=== PATIENT | female | born 1995 | race Caucasian/White ===

== ENCOUNTER 2023-03-24 00:39 | Emergency (ER) | payer OTHER ==
[2023-03-24 00:51] VITALS: BP 109/74; PULSE 77; RESP 18; TEMP 97.8; BMI 25.6
[2023-03-24] MEDS ORDERED: ONDANSETRON *ODT* 4 MG TABLET SL ONE ×2 (01:18→01:34)
[2023-03-24] MEDS ORDERED: ONDANSETRON *ODT* 4 MG TABLET ONE (01:25)
== END 2023-03-24 01:35 | disposition home or self-care (01) ==
LOC: JER 00:39
DX: R11.2 Nausea with vomiting, unspecified (principal); R19.7 Diarrhea, unspecified; R68.83 Chills (without fever); Z20.822 Contact with and (suspected) exposure to COVID-19
CPT/HCPCS: 0241U-QW; 99283-25; Q0162

== ENCOUNTER 2024-09-16 00:29 | Emergency (ER) | payer SELFPAY ==
[2024-09-16 00:37] VITALS: BP 119/75; PULSE 69; RESP 18; TEMP 98.6; BMI 28.3
[2024-09-16] MEDS ORDERED: ACETAMINOPHEN 325 MG TABLET (FP) ONE (01:44)
[2024-09-16] MEDS ORDERED: FAMOTIDINE 20 MG TABLET ONE (01:44)
[2024-09-16] MEDS ORDERED: MAG HYDROX/AL HYDROX/SIMETH 30 ML UNIT-DOSE CUP ONE (01:45)
[2024-09-16] MEDS: ACETAMINOPHEN 325 MG TABLET (FP) PO ONE (02:05)
[2024-09-16] MEDS: MAG HYDROX/AL HYDROX/SIMETH 30 ML UNIT-DOSE CUP PO ONE (02:05)
[2024-09-16] MEDS: FAMOTIDINE 20 MG TABLET PO ONE (02:05)
[2024-09-16 02:08] LABS: BASO % 0.6 % (0-2.0); EOS % 2.2 % (0-4.5); HEMATOCRIT 34.3 % (32.4-45.2); HEMOGLOBIN 11.4 GM/dL (10.7-15.3); MCH 28.7 pg (25.7-33.7); MCHC 33.1 g/dl (32.0-36.0); MEAN CELL VOLUME 86.7 fl (80-96); NEUT % 54.2 % (42.8-82.8); PLATELET COUNT 272 10^3/uL (134-434); RBC 3.95 M/mm3 (3.60-5.2); RDW 13.9 % (11.6-15.6); WHITE BLOOD COUNT 7.2 K/mm3 (4.0-10.0)
[2024-09-16 02:26] LABS: POTASSIUM 4.2 mmol/L (3.5-5.1)
[2024-09-16 02:28] LABS: ALBUMIN 3.8 g/dl (3.4-5.0); BLOOD UREA NITROGEN 13.9 mg/dL (7-18); CALCIUM 8.8 mg/dL (8.5-10.1)
[2024-09-16 02:31] LABS: CREATININE 0.9 mg/dL (0.55-1.3)
[2024-09-16 02:33] LABS: BILIRUBIN,TOTAL 0.2 mg/dL (0.2-1); TOT PROT 7.3 g/dl (6.4-8.2)
[2024-09-16 03:42] LABS: HIV INTERPRETATION NEGATIVE (NEGATIVE)
[2024-09-16] MEDS ORDERED: IBUPROFEN 600 MG TABLET (FP) PO ONE (03:47)
[2024-09-16] MEDS: IBUPROFEN 600 MG TABLET (FP) PO ONE (03:50)
== END 2024-09-16 04:33 | disposition home or self-care (01) ==
LOC: JER 00:29
DX: R10.13 Epigastric pain (principal)
CPT/HCPCS: 36415; 71046-TC-FY; 80053; 83690; 85025; 86803; 87389; 93005; 93010; 99285-25